=== PATIENT | female | born 1980 | race Caucasian/White ===

== ENCOUNTER 2019-04-04 02:22 | Emergency (ER) | payer OTHER ==
[2019-04-04 03:00] VITALS: TEMP 98.2; BMI 25.6
[2019-04-04] MEDS ORDERED: ACETAMINOPHEN 500 MG TABLET (FP) PO ONE (03:13)
[2019-04-04] MEDS ORDERED: LIDOCAINE 5% TOPICAL PATCH TP ONE (03:13)
[2019-04-04] MEDS ORDERED: ACETAMINOPHEN 325 MG TABLET (FP) ONE (03:17)
[2019-04-04] MEDS ORDERED: LIDOCAINE 5% TOPICAL PATCH ONE (03:17)
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
[2019-04-04] MEDS ORDERED: KETOROLAC TROMETHAMINE 30 MG/1 ML VIAL IM ONE (05:37)
[2019-04-04] MEDS ORDERED: KETOROLAC TROMETHAMINE 30 MG/1 ML VIAL ONE (05:38)
[2019-04-04 06:27] VITALS: BP 124/82; PULSE 74
[2019-04-04] MEDS ORDERED: LIDOCAINE PATCH REMOVAL MC SCH (22:00)
== END 2019-04-04 06:20 | disposition home or self-care (01) ==
LOC: JER 02:22
PROC: 3E0233Z Introduction of Anti-inflammatory into Muscle, Percutaneous Approach (ICD-10-PCS; principal; 2019-04-04)
DX: S13.4XXA Sprain of ligaments of cervical spine, initial encounter (principal); M54.5 Low back pain; V63.5XXA Driver of heavy transport vehicle injured in collision with car, pick-up truck or van in traffic accident, initial encounter; Y92.414 Local residential or business street as the place of occurrence of the external cause; Y99.0 Civilian activity done for income or pay; Y93.89 Activity, other specified
CPT/HCPCS: 72050-TC-FY; 72070-TC-FY; 84703; 99282-25

== ENCOUNTER 2020-01-12 15:28 | Emergency (ER) | payer OTHER ==
--- NOTE | 2020-01-12 15:44 | PDOC ---
Rapid Medical Evaluation Time Seen by Provider: 01/12/20 15:39 Medical Evaluation: Allergies Allergy/AdvReac Type Severity Reaction Status Date / Time No Known Allergies Allergy Verified 04/04/19 03:00 01/12/20 15:40 I have performed a brief in-person evaluation of this patient. CC: right pelvic pain x2 weeks. +vaginal bleeding. 5-6 pad use daily. PE: deferred Orders: labs, urine Patient to proceed to ED for further evaluation. Discharge Disposition - Diagnosis Pelvic pain - Referrals - Patient Instructions - Post Discharge Activity
[2020-01-12 15:45] VITALS: TEMP 97.7; BMI 28.1
[2020-01-12 16:20] LABS: BASO % 1.2 % (0-2.0); EOS % 0.4 % (0-4.5); HEMATOCRIT 38.3 % (32.4-45.2); HEMOGLOBIN 12.1 GM/dL (10.7-15.3); LYMPH % 21.8 % (8-40); MCHC 31.5 g/dl (32.0-36.0); MEAN CELL VOLUME 82.6 fl (80-96); MEAN PLT VOLUME 8.5 fl (7.5-11.1); MONO % 5.6 % (3.8-10.2); PLATELET COUNT 291 K/MM3 (134-434); RBC 4.64 M/mm3 (3.60-5.2); WHITE BLOOD COUNT 14.4 K/mm3 (4.0-10.0)
[2020-01-12 16:47] LABS: ALBUMIN 3.6 g/dl (3.4-5.0); BILIRUBIN,TOTAL 0.2 mg/dL (0.2-1); BLOOD UREA NITROGEN 9.2 mg/dL (7-18); CALCIUM 8.9 mg/dL (8.5-10.1); CREATININE 0.7 mg/dL (0.55-1.3); POTASSIUM 4.6 mmol/L (3.5-5.1); TOT PROT 7.2 g/dl (6.4-8.2)
[2020-01-12 17:16] LABS: EPI CELLS 6 /uL (0-25.1); HYALINE CASTS 14 /uL (0-3.1); PH,URINE 7.5 (5.0-8.0); URINE APPEARANCE CLOUDY; URINE BACTERIA 823 /uL (0-1359); URINE BILIRUBIN NEGATIVE (NEGATIVE); URINE COLOR YELLOW; URINE GLUCOSE (UA) NEGATIVE (NEGATIVE); URINE KETONE NEGATIVE (NEGATIVE); URINE LEUK ESTERASE 1+ (NEGATIVE); URINE NITRITE NEGATIVE (NEGATIVE); URINE PROTEIN 1+ (NEGATIVE); URINE RBC 2690 /uL (0-23.9); URINE WBC 382 /uL (0-25.8)
[2020-01-12 17:17] LABS: HCG,QUALITATIVE URINE Negative
[2020-01-12 19:00] LABS: INR 0.99 (0.83-1.09); PROTHROMBIN TIME (PATIENT) 11.7 SEC (9.7-13.0)
[2020-01-12 19:03] LABS: ACTIVATED PTT 26.4 SECONDS (25.2-36.5)
--- NOTE | 2020-01-12 19:12 | PDOC ---
History of Present Illness - General Chief Complaint: Pain, Acute Stated Complaint: PELVIC PAIN Time Seen by Provider: 01/12/20 15:39 - History of Present Illness Initial Comments: 01/12/20 19:10 39-year-old female presents for evaluation of right-sided pelvic pain and vaginal bleeding x2 weeks pelvic pain increased today. She has no comorbidities. Past History - Medical History Allergies/Adverse Reactions: Allergies Allergy/AdvReac Type Severity Reaction Status Date / Time aspirin Allergy Verified 01/12/20 15:42 Penicillins Allergy Verified 01/12/20 15:42 Sulfa (Sulfonamide Allergy Verified 01/12/20 15:42 Antibiotics) Home Medications: Ambulatory Orders Mirtazapine 30 mg PO HS 01/12/20 Omeprazole 20 mg PO DAILY 01/12/20 Oxycodone HCl 10 mg PO TID PRN 01/12/20 COPD: No - Reproductive History Is Patient Now?: No - Immunization History Immunization Up to Date: Yes - Psycho-Social/Smoking History Smoking History: Never smoked Have you smoked in the past 12 months: Yes - Substance Abuse Hx (Audit-C & DAST Scrn) How often the patient has a drink containing alcohol: Never Score: In Men: 4 or > Positive; In Women: 3 or > Positive: 0 Screen Result (Pos requires Nsg. Audit-10AR): Negative In the last yr the pt used illegal drug/Rx for NonMed reason: No Score: Yes response is considered Positive: 0 Screen Result (Positive result requires Nsg. DAST-10): Negative Review of Systems - Review of Systems Able to Perform ROS?: Yes Constitutional: No: Fever : Yes: Pain. No: Dysuria, Discharge *Physical Exam - Vital Signs Last Vital Signs Temp Pulse Resp BP Pulse Ox 97.7 F 88 20 108/73 100 01/12/20 15:43 01/12/20 15:43 01/12/20 15:43 01/12/20 15:43 01/12/20 15:43 - Physical Exam Female Pelvic Exam: positive: other (There is minimal right and left adnexal tenderness no cervical motion tenderness osseous closed.) Gastrointestinal/Abdominal: positive: Normal Bowel Sounds, Flat, Soft, Organomegaly. negative: Tender ED Treatment Course - LABORATORY CBC & Chemistry Diagram: 01/12/20 16:03 01/12/20 16:03 - ADDITIONAL ORDERS Additional order review: Laboratory Results 01/12/20 01/12/20 01/12/20 18:00 16:03 16:03 PT with INR 11.70 INR 0.99 PTT (Actin FS) 26.4 Sodium 139 Potassium 4.6 Chloride 105 Carbon Dioxide 28 Anion Gap 6 L BUN 9.2 Creatinine 0.7 Est GFR (CKD-EPI)AfAm 128.28 Est GFR (CKD-EPI)NonAf 110.69 Random Glucose 83 Calcium 8.9 Total Bilirubin 0.2 AST 15 ALT 23 Alkaline Phosphatase 114 Total Protein 7.2 Albumin 3.6 Urine Color Urine Appearance Urine pH Ur Specific [place] Urine Protein Urine Glucose (UA) Urine Ketones Urine Blood Urine Nitrite Urine Bilirubin Urine Urobilinogen Ur Leukocyte Esterase Urine WBC (Auto) Urine RBC (Auto) Urine Casts (Auto) U Pathogenic Cast Auto U Epithel Cells (Auto) Urine Bacteria (Auto) Urine HCG, Qual Blood Type O POSITIVE Antibody Screen Negative 01/12/20 16:03 PT with INR INR PTT (Actin FS) Sodium Potassium Chloride Carbon Dioxide Anion Gap BUN Creatinine Est GFR (CKD-EPI)AfAm Est GFR (CKD-EPI)NonAf Random Glucose Calcium Total Bilirubin AST ALT Alkaline Phosphatase Total Protein Albumin Urine Color Yellow Urine Appearance Cloudy Urine pH 7.5 Ur Specific [place] 1.027 Urine Protein 1+ H Urine Glucose (UA) Negative Urine Ketones Negative Urine Blood 3+ H Urine Nitrite Negative Urine Bilirubin Negative Urine Urobilinogen 1.0 Ur Leukocyte Esterase 1+ H Urine WBC (Auto) 382 Urine RBC (Auto) 2690 Urine Casts (Auto) 14 U Pathogenic Cast Auto Negative U Epithel Cells (Auto) 6 Urine Bacteria (Auto) 823 Urine HCG, Qual Negative Blood Type Antibody Screen 01/12/20 16:03 RBC 4.64 MCV 82.6 MCHC 31.5 L RDW 17.0 H MPV 8.5 Neutrophils % 71.0 Lymphocytes % 21.8 Monocytes % 5.6 Eosinophils % 0.4 Basophils % 1.2 - RADIOLOGY Radiology Studies Ordered: Category Date Time Status TRANSVAGINAL ULTRASOUND US [US] Stat Ultrasound 01/12/20 17:20 Completed Medical Decision Making - Medical Decision Making 01/12/20 19:11 CAT scan results reviewed patient to follow-up with [facility] OPERATOR I have reviewed the pathophysiology with the patient. They are in agreement with the treatment plan all questions were answered to their satisfaction. Understanding for follow-up without fail was also conveyed to the patient. Again they are in agreement. Discharge - Discharge Information Problems reviewed: Yes Clinical Impression/Diagnosis: Pelvic pain, Dysfunctional uterine bleeding Condition: Stable Disposition: HOME - Admission No - Follow up/Referral Referrals: Lion Barker [Primary Care Provider] - Mary Koenig MD [Staff Physician] - - Patient Discharge Instructions Additional Instructions: Return to the emergency room for worsening symptoms and without fail follow-up with your financial health counselor to discuss the results of your ultrasound. Follow-up with gynecology in 1 to 2 days without fail for further evaluation and treatment options. - Post Discharge Activity
[2020-01-12 20:10] VITALS: BP 110/73; PULSE 86
== END 2020-01-12 20:10 | disposition home or self-care (01) ==
LOC: JER 15:28
DX: R10.2 Pelvic and perineal pain (principal)
CPT/HCPCS: 36415; 76830-TC; 80053; 81003; 84703; 85025; 85610; 85730; 86850; 86900; 86901; 87086; 87491; 87591; 99284-25

== ENCOUNTER 2021-01-28 16:24 | Emergency (ER) | payer OTHER ==
[2021-01-28 16:50] VITALS: BMI 21.9
[2021-01-28] MEDS ORDERED: SODIUM CHLORIDE 0.9% 500 ML INFUS.BAG IV ONE (17:03)
[2021-01-28] MEDS ORDERED: ONDANSETRON 4 MG TABLET PO ONE (17:03)
[2021-01-28] MEDS ORDERED: ACETAMINOPHEN 1000 MG/100 ML VIAL (NON FORMULARY) IVPB ONE (17:21)
[2021-01-28] MEDS ORDERED: ACETAMINOPHEN INJECTION 100 ML IVPB ONE (17:33)
[2021-01-28] MEDS ORDERED: ONDANSETRON 4 MG/2 ML VIAL IVPUSH ONE (17:35)
[2021-01-28 17:39] LABS: BASO % 0.8 % (0-2.0); EOS % 0.4 % (0-4.5); HEMATOCRIT 36.9 % (32.4-45.2); HEMOGLOBIN 12.2 GM/dL (10.7-15.3); LYMPH % 6.7 % (8-40); MCH 27.3 pg (25.7-33.7); MEAN CELL VOLUME 82.7 fl (80-96); MEAN PLT VOLUME 8.7 fl (7.5-11.1); MONO % 3.9 % (3.8-10.2); NEUT % 88.2 % (42.8-82.8); PLATELET COUNT 293 10^3/uL (134-434); RBC 4.46 M/mm3 (3.60-5.2); RDW 16.7 % (11.6-15.6); WHITE BLOOD COUNT 12.3 K/mm3 (4.0-10.0)
[2021-01-28] MEDS ORDERED: ONDANSETRON 4 MG/2 ML VIAL ONE (17:47)
[2021-01-28 18:06] LABS: CALCIUM 8.6 mg/dL (8.5-10.1)
[2021-01-28 18:07] LABS: ALBUMIN 3.6 g/dl (3.4-5.0); BLOOD UREA NITROGEN 12.2 mg/dL (7-18)
[2021-01-28 18:10] LABS: CREATININE 0.6 mg/dL (0.55-1.3)
[2021-01-28 18:12] LABS: BILIRUBIN,TOTAL 0.7 mg/dL (0.2-1); TOT PROT 6.8 g/dl (6.4-8.2)
[2021-01-28] MEDS ORDERED: FAMOTIDINE 20 MG/50 ML IVPB 20 MG/50 ML MG IVPB ONE ×2 (18:27→18:37)
[2021-01-28] MEDS ORDERED: METOCLOPRAMIDE HCL INJECTION 10 MG/2 ML VIAL IVPUSH ONE (18:27)
[2021-01-28] MEDS ORDERED: METOCLOPRAMIDE HCL INJECTION 10 MG/2 ML VIAL ONE (18:37)
[2021-01-28 20:37] VITALS: BP 103/78; PULSE 72; TEMP 98.5
== END 2021-01-28 19:35 | disposition home or self-care (01) ==
LOC: JER 16:24
PROC: 3E0333Z Introduction of Anti-inflammatory into Peripheral Vein, Percutaneous Approach (ICD-10-PCS; principal; 2021-01-28)
PROC: 3E033GC Introduction of Other Therapeutic Substance into Peripheral Vein, Percutaneous Approach (ICD-10-PCS; 2021-01-28)
PROC: 3E033GC Introduction of Other Therapeutic Substance into Peripheral Vein, Percutaneous Approach (ICD-10-PCS; 2021-01-28)
PROC: 3E033GC Introduction of Other Therapeutic Substance into Peripheral Vein, Percutaneous Approach (ICD-10-PCS; 2021-01-28)
DX: R11.2 Nausea with vomiting, unspecified (principal)
CPT/HCPCS: 36415; 80053; 84703; 85025; 93005; 93010; 99284-25; J0131

== ENCOUNTER 2021-06-01 14:09 | Emergency (ER) | payer OTHER ==
[2021-06-01 14:31] VITALS: BP 105/59; PULSE 77; TEMP 98.2; BMI 22.4
== END 2021-06-01 16:00 | disposition home or self-care (01) ==
LOC: JER 14:09
DX: U07.1 COVID-19 (principal); J06.9 Acute upper respiratory infection, unspecified
CPT/HCPCS: 99283-25

== ENCOUNTER 2021-06-12 20:34 | Emergency (ER) | payer OTHER ==
[2021-06-12 20:41] VITALS: TEMP 98.1; BMI 25.2
[2021-06-12] MEDS ORDERED: SODIUM CHLORIDE 1,000 ML IV STA (21:48)
[2021-06-12] MEDS ORDERED: ONDANSETRON 4 MG/2 ML VIAL IVPUSH ONE (21:48)
[2021-06-12] MEDS ORDERED: morphine CARPU-JECT 4 MG/1 ML DISP.SYRIN IVPUSH ONE (21:50)
[2021-06-12] MEDS ORDERED: ONDANSETRON 4 MG/2 ML VIAL ONE (22:02)
[2021-06-12] MEDS ORDERED: morphine SULFATE 4 MG/ML VIAL ONE (22:02)
[2021-06-12 22:31] LABS: BASO % 1.3 % (0-2.0); EOS % 0.7 % (0-4.5); HEMATOCRIT 34.9 % (32.4-45.2); HEMOGLOBIN 11.2 GM/dL (10.7-15.3); LYMPH % 20.8 % (8-40); MCH 26.3 pg (25.7-33.7); MCHC 32.2 g/dl (32.0-36.0); MEAN CELL VOLUME 81.8 fl (80-96); MEAN PLT VOLUME 8.8 fl (7.5-11.1); MONO % 8.3 % (3.8-10.2); NEUT % 68.9 % (42.8-82.8); PLATELET COUNT 336 10^3/uL (134-434); RBC 4.27 M/mm3 (3.60-5.2); RDW 18.7 % (11.6-15.6); WHITE BLOOD COUNT 12.3 K/mm3 (4.0-10.0)
[2021-06-12 22:32] LABS: PH,URINE 6.5 (5.0-8.0); URINE APPEARANCE CLEAR; URINE BILIRUBIN NEGATIVE (NEGATIVE); URINE COLOR YELLOW; URINE GLUCOSE (UA) NEGATIVE (NEGATIVE); URINE KETONE TRACE (NEGATIVE); URINE LEUK ESTERASE NEGATIVE (NEGATIVE); URINE NITRITE NEGATIVE (NEGATIVE); URINE PROTEIN NEGATIVE (NEGATIVE); URINE UROBILINOGEN 0.2 mg/dL (0.2-1.0)
[2021-06-12 22:51] LABS: HCG,QUALITATIVE URINE Negative
[2021-06-12 23:01] LABS: ALBUMIN 3.6 g/dl (3.4-5.0); BLOOD UREA NITROGEN 7.5 mg/dL (7-18)
[2021-06-12 23:04] LABS: CREATININE 0.5 mg/dL (0.55-1.3)
[2021-06-12 23:05] LABS: BILIRUBIN,TOTAL 0.1 mg/dL (0.2-1); TOT PROT 6.7 g/dl (6.4-8.2)
[2021-06-13] MEDS ORDERED: KETOROLAC TROMETHAMINE 30 MG/1 ML VIAL IVPUSH ONE (00:21)
[2021-06-13] MEDS ORDERED: KETOROLAC TROMETHAMINE 30 MG/1 ML VIAL ONE (00:35)
[2021-06-13 01:00] VITALS: BP 102/63; PULSE 64
== END 2021-06-13 01:00 | disposition home or self-care (01) ==
LOC: JER 20:34
DX: R10.31 Right lower quadrant pain (principal)
CPT/HCPCS: 36415; 74177-TC; 76830-TC; 80053; 81003; 83690; 84703; 85025; 87086; 99281-25; Q9967